=== PATIENT | female | born 1960 | race American Indian/Alaskan Native ===

== ENCOUNTER 2021-02-22 10:07 | Emergency (ER) | payer SELFPAY ==
[2021-02-22 10:15] VITALS: BP 159/99
--- NOTE | 2021-02-22 11:29 | XRay Report ---
CHEST 2 VIEWS INDICATION: chest pain. COMPARISON: 03/17/2012 FINDINGS: SUPPORT DEVICES: None. HEART: Within normal limits. LUNGS/PLEURA: No acute air space or interstitial disease. No pneumothorax. ADDITIONAL FINDINGS: None. IMPRESSION: 1. No acute findings. Signer Name: Dale Case MD Signed: 02/22/2021 11:25 AM Workstation Name: [id number]
--- NOTE | 2021-02-22 11:33 | Emergency Department Report ---
ED Chest Pain HPI - General Chief Complaint: Chest Pain Stated Complaint: CHEST PAIN Time Seen by Provider: 02/22/21 10:25 Source: patient Mode of arrival: Ambulatory Limitations: No Limitations - History of Present Illness Initial Comments: 60-year-old -M[place] female patient presents with complaints of cough and pain with deep breathing in the left-sided chest x2 weeks. She states she is vaccinated against COVID-19, however she has not had any recent testing performed. Cough is nonproductive and she denies any hemoptysis, fever, abdominal pain, or past heart history. She admits to some shortness of breath. No recent long travel/surgeries, leg pain/swelling, hormone use, or history of DVT/PE/cancer per patient. She also denies any past family history of heart disease. Past medical history includes hypertension, hepatitis C, and asthma. Patient states she has not taken her lisinopril 5 mg in 6 months - Related Data Previous Rx's Medication Instructions Recorded Last Taken Type Azithromycin [Zithromax Z-ALLAN] 0 mg PO DAILY #6 tab 02/22/21 Unknown Rx Lisinopril [Zestril] 5 mg PO QDAY #30 tablet 02/22/21 Unknown Rx guaiFENesin/DEXTROMETHORPHAN 1 each PO BID 10 Days #20 02/22/21 Unknown Rx [Mucinex Dm ER 1,200-60 mg Tab] tab.er.12h Heart Score - HEART Score History: Slightly suspicious EKG: Normal Age: 45-65 Risk factors: 1-2 risk factors Troponin: < normal limit HEART Score: 2 - EKG Read Time Time EKG Completed: 06:00 EKG Read Time: 06:05 - Critical Actions Critical Actions: 0-3 pts:0.9-1.7%risk of adverse cardiac event.Candidate for discharge ED Review of Systems ROS: Stated complaint: CHEST PAIN Other details as noted in HPI Constitutional: denies: chills, diaphoresis, fever, malaise, weakness ENT: denies: throat pain Respiratory: cough, shortness of breath Cardiovascular: as per HPI. denies: palpitations, edema, syncope Gastrointestinal: denies: abdominal pain, nausea, vomiting Neurological: denies: headache ED Past Medical Hx - Medications Home Medications: Home Medications Medication Instructions Recorded Confirmed Last Taken Type Azithromycin [Zithromax Z-ALLAN] 0 mg PO DAILY #6 tab 02/22/21 Unknown Rx Lisinopril [Zestril] 5 mg PO QDAY #30 tablet 02/22/21 Unknown Rx guaiFENesin/DEXTROMETHORPHAN 1 each PO BID 10 Days #20 02/22/21 Unknown Rx [Mucinex Dm ER 1,200-60 mg Tab] tab.er.12h ED Physical Exam - General Limitations: No Limitations General appearance: alert, in no apparent distress - Head Head exam: Present: atraumatic, normocephalic - Eye Eye exam: Present: normal appearance. Absent: scleral icterus - Neck Neck exam: Present: normal inspection - Respiratory Respiratory exam: Present: normal lung sounds bilaterally. Absent: respiratory distress - Cardiovascular Cardiovascular Exam: Present: regular rate, normal rhythm - GI/Abdominal GI/Abdominal exam: Present: soft. Absent: tenderness - Extremities Exam Extremities exam: Absent: calf tenderness (No swelling or pain noted to legs bilaterally) - Back Exam Back exam: Present: full ROM - Neurological Exam Neurological exam: Present: alert, oriented X3, normal gait - Psychiatric Psychiatric exam: Present: normal affect, normal mood - Skin Skin exam: Present: warm, dry, intact, normal color. Absent: rash ED Course Vital Signs 02/22/21 10:12 Temperature 98.0 F Pulse Rate 67 Respiratory 16 Rate Blood Pressure 159/99 O2 Sat by Pulse 99 Oximetry ED Medical Decision Making - Lab Data Result diagrams: 02/22/21 11:02 02/22/21 11:02 Lab Results 02/22/21 02/22/21 02/22/21 Range/Units 11:02 11:02 11:02 WBC 2.7 L (4.5-11.0) K/mm3 RBC 4.65 (3.65-5.03) M/mm3 Hgb 13.3 (10.1-14.3) gm/dl Hct 41.7 (30.3-42.9) % MCV 90 (79-97) fl MCH 29 (28-32) pg MCHC 32 (30-34) % RDW 13.9 (13.2-15.2) % Plt Count 132 L (140-440) K/mm3 Lymph % (Auto) [employer] Add Manual Diff Complete Total Counted 100 Seg Neutrophils % [employer] Seg Neuts % (Manual) 47.0 (40.0-70.0) % Lymphocytes % (Manual) 42.0 H (13.4-35.0) % Reactive Lymphs % (Man) 3.0 % Monocytes % (Manual) 5.0 (0.0-7.3) % Eosinophils % (Manual) 3.0 (0.0-4.3) % Nucleated RBC % Not Reportable Seg Neutrophils # Man 1.3 L (1.8-7.7) K/mm3 Band Neutrophils # 0.0 K/mm3 Lymphocytes # (Manual) 1.1 L (1.2-5.4) K/mm3 Abs React Lymphs (Man) 0.1 K/mm3 Monocytes # (Manual) 0.1 (0.0-0.8) K/mm3 Eosinophils # (Manual) 0.1 (0.0-0.4) K/mm3 Basophils # (Manual) 0.0 (0.0-0.1) K/mm3 Metamyelocytes # 0.0 K/mm3 Myelocytes # 0.0 K/mm3 Promyelocytes # 0.0 K/mm3 Blast Cells # 0.0 K/mm3 WBC Morphology Not Reportable TNR Hypersegmented Neuts Not Reportable Hyposegmented Neuts Not Reportable Hypogranular Neuts Not Reportable Smudge Cells Not Reportable Toxic Granulation Not Reportable Toxic Vacuolation Not Reportable Dohle Bodies Not Reportable Pelger-Huet Anomaly Not Reportable Oscar Rods Not Reportable Platelet Estimate Consistent w auto Clumped Platelets Not Reportable Plt Clumps, EDTA Not Reportable Large Platelets Not Reportable Giant Platelets Not Reportable Platelet Satelliting Not Reportable Plt Morphology Comment Not Reportable RBC Morphology Normal Dimorphic RBCs Not Reportable Polychromasia Not Reportable Hypochromasia Not Reportable Poikilocytosis Not Reportable Anisocytosis Not Reportable Microcytosis Not Reportable Macrocytosis Not Reportable Spherocytes Not Reportable Pappenheimer Bodies Not Reportable Sickle Cells Not Reportable Target Cells Not Reportable Tear Drop Cells Not Reportable Ovalocytes Not Reportable Helmet Cells Not Reportable [place] Bodies Not Reportable [place] Rings Not Reportable [place] Cells Not Reportable Bite Cells Not Reportable Crenated Cell Not Reportable Elliptocytes Not Reportable Acanthocytes (Spur) Not Reportable Rouleaux Not Reportable Hemoglobin C Crystals Not Reportable Schistocytes Not Reportable Malaria parasites Not Reportable [place] Bodies Not Reportable Hem Pathologist Commnt No D-Dimer (0-234) ng/mlDDU Sodium 140 (137-145) mmol/L Potassium 3.8 (3.6-5.0) mmol/L Chloride 99.6 (98-107) mmol/L Carbon Dioxide 25 (22-30) mmol/L Anion Gap 19 mmol/L BUN 12 (7-17) mg/dL Creatinine 0.6 (0.6-1.2) mg/dL Estimated GFR > 60 ml/min BUN/Creatinine Ratio 20 % Glucose 114 H (65-100) mg/dL Calcium 9.1 (8.4-10.2) mg/dL Total Bilirubin 0.90 (0.1-1.2) mg/dL AST 84 H (5-40) units/L ALT 73 H (7-56) units/L Alkaline Phosphatase 97 (35-129) units/L Troponin T < 0.010 (0.00-0.029) ng/mL NT-Pro-B Natriuret Pep (0-900) pg/mL Total Protein 7.7 (6.3-8.2) g/dL Albumin 4.0 (3.9-5) g/dL Albumin/Globulin Ratio 1.1 % 02/22/21 02/22/21 Range/Units 11:35 14:41 WBC (4.5-11.0) K/mm3 RBC (3.65-5.03) M/mm3 Hgb (10.1-14.3) gm/dl Hct (30.3-42.9) % MCV (79-97) fl MCH (28-32) pg MCHC (30-34) % RDW (13.2-15.2) % Plt Count (140-440) K/mm3 Lymph % (Auto) Add Manual Diff Total Counted Seg Neutrophils % Seg Neuts % (Manual) (40.0-70.0) % Lymphocytes % (Manual) (13.4-35.0) % Reactive Lymphs % (Man) % Monocytes % (Manual) (0.0-7.3) % Eosinophils % (Manual) (0.0-4.3) % Nucleated RBC % Seg Neutrophils # Man (1.8-7.7) K/mm3 Band Neutrophils # K/mm3 Lymphocytes # (Manual) (1.2-5.4) K/mm3 Abs React Lymphs (Man) K/mm3 Monocytes # (Manual) (0.0-0.8) K/mm3 Eosinophils # (Manual) (0.0-0.4) K/mm3 Basophils # (Manual) (0.0-0.1) K/mm3 Metamyelocytes # K/mm3 Myelocytes # K/mm3 Promyelocytes # K/mm3 Blast Cells # K/mm3 WBC Morphology Hypersegmented Neuts Hyposegmented Neuts Hypogranular Neuts Smudge Cells Toxic Granulation Toxic Vacuolation Dohle Bodies Pelger-Huet Anomaly Oscar Rods Platelet Estimate Clumped Platelets Plt Clumps, EDTA Large Platelets Giant Platelets Platelet Satelliting Plt Morphology Comment RBC Morphology Dimorphic RBCs Polychromasia Hypochromasia Poikilocytosis Anisocytosis Microcytosis Macrocytosis Spherocytes Pappenheimer Bodies Sickle Cells Target Cells Tear Drop Cells Ovalocytes Helmet Cells Hayden-Floris Bodies [place] Rings Sana Cells Bite Cells Crenated Cell Elliptocytes Acanthocytes (Spur) Rouleaux Hemoglobin C Crystals Schistocytes Malaria parasites Torito Bodies Hem Pathologist Commnt D-Dimer 287.60 H (0-234) ng/mlDDU Sodium (137-145) mmol/L Potassium (3.6-5.0) mmol/L Chloride (98-107) mmol/L Carbon Dioxide (22-30) mmol/L Anion Gap mmol/L BUN (7-17) mg/dL Creatinine (0.6-1.2) mg/dL Estimated GFR ml/min BUN/Creatinine Ratio % Glucose (65-100) mg/dL Calcium (8.4-10.2) mg/dL Total Bilirubin (0.1-1.2) mg/dL AST (5-40) units/L ALT (7-56) units/L Alkaline Phosphatase (35-129) units/L Troponin T (0.00-0.029) ng/mL NT-Pro-B Natriuret Pep 414.8 (0-900) pg/mL Total Protein (6.3-8.2) g/dL Albumin (3.9-5) g/dL Albumin/Globulin Ratio % - Radiology Data Radiology results: report reviewed CHEST 2 VIEWS INDICATION: chest pain. COMPARISON: 03/17/2012 FINDINGS: SUPPORT DEVICES: None. HEART: Within normal limits. LUNGS/PLEURA: No acute air space or interstitial disease. No pneumothorax. ADDITIONAL FINDINGS: None. IMPRESSION: 1. No acute findings. - Medical Decision Making 60-year-old -M[place] female patient presents with complaints of cough and pain with deep breathing in the left-sided chest x2 weeks. She states she is vaccinated against COVID-19, however she has not had any recent testing performed. Cough is nonproductive and she denies any hemoptysis, fever, abdominal pain, or past heart history. She admits to some shortness of breath. No recent long travel/surgeries, leg pain/swelling, hormone use, or history of DVT/PE/cancer per patient. She also denies any past family history of heart disease. Past medical history includes hypertension, hepatitis C, and asthma. Patient states she has not taken her lisinopril 5 mg in 6 months Troponin is normal. No acute abnormalities noted on x-ray or labs. Dimer performed given age and pleuritic chest pain and is mildly positive. Discussed possibility of PE given positive dimer, however patient declines CTA chest and states she would like to go home. Discussed risks versus benefits of CTA chest including possibly , patient continues to decline CT chest. Will discharge home and treat for lower respiratory tract infection. Recommend patient get COVID-19 testing within the next 24 to 48 hours and self quarantine's until further instructed. Also recommend patient follows up with primary care for further evaluation of her blood pressure and treatment. Strict return precautions discussed in great detail with patient who verbalizes Critical care attestation.: If time is entered above; I have spent that time in minutes in the direct care of this critically ill patient, excluding procedure time. ED Disposition Clinical Impression: Lower respiratory infection, Pleuritis Disposition: HOME / SELF CARE / HOMELESS Is pt being admited?: No Condition: Stable Instructions: Acute Bronchitis, Adult, Pleurisy Prescriptions: guaiFENesin/DEXTROMETHORPHAN [Mucinex Dm ER 1,200-60 mg Tab] 1 each PO BID 10 Days #20 tab.er.12h Lisinopril [Zestril] 5 mg PO QDAY #30 tablet Azithromycin [Zithromax Z-ALLAN] 0 mg PO DAILY #6 tab Referrals: [facility] [Provider Group] - 3-5 Days PRIMARY CARE, [Primary Care Provider] - 3-5 Days Forms: Work/School Release Form(ED)
[2021-02-22 11:41] LABS: Hematocrit 41.7 % (30.3-42.9); Hemoglobin 13.3 gm/dl (10.1-14.3); Mean Corpuscular HGB Conc 32 % (30-34); Mean Corpuscular Volume 90 fl (79-97); Platelet Count 132 K/mm3 (140-440); Red Blood Count 4.65 M/mm3 (3.65-5.03); Red Cell Distribution Width 13.9 % (13.2-15.2)
[2021-02-22 11:58] LABS: Blood Urea Nitrogen 12 mg/dL (7-17); Calcium 9.1 mg/dL (8.4-10.2)
[2021-02-22 11:59] LABS: Alanine Aminotransferase 73 units/L (7-56); Hemolysis Index 25
[2021-02-22 12:03] LABS: BUN/Creatinine Ratio 20
[2021-02-22 12:56] LABS: Total Cells Counted 100
[2021-02-22 12:58] LABS: Platelet Estimate Consistent w Auto; RBC Morphology Normal
--- NOTE | 2021-02-23 11:01 | Electrocardiograph Report ---
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
== END 2021-02-22 16:14 | disposition home or self-care (01) ==
LOC: ED 10:07
DX: J06.9 Acute upper respiratory infection, unspecified (principal); R09.1 Pleurisy
CPT/HCPCS: 36415; 71046; 80053; 83880; 84484; 85007; 85025; 85379; 93005; 99283

== ENCOUNTER 2021-05-26 09:13 | Emergency (ER) | payer SELFPAY ==
[2021-05-26 09:36] VITALS: BP 142/101
--- NOTE | 2021-05-26 10:16 | XRay Report ---
XR knee 3V LT INDICATION / CLINICAL INFORMATION: pain sp fall. COMPARISON: None available. FINDINGS: BONES/JOINT(S): No acute fracture or subluxation. Mild tricompartmental osteoarthritis. SOFT TISSUES: No significant abnormality. ADDITIONAL FINDINGS: None. Signer Name: Jeff Hernandez MD Signed: 05/26/2021 10:12 AM Workstation Name: [email or web address]
[2021-05-26] MEDS ORDERED: KETOROLAC 30 MG/1 ML INJ IM ONE (10:17)
--- NOTE | 2021-05-26 10:18 | Emergency Department Report ---
ED Lower Extremity HPI - General Chief Complaint: Fall Stated Complaint: FELL ON [employer] TRAIN/LT KNEE Time Seen by Provider: 05/26/21 09:28 Source: patient Mode of arrival: Ambulatory Limitations: No Limitations - History of Present Illness Initial Comments: Ms. Rosenberg is a 60-year-old female that comes to the ER after falling while getting off a [employer] bus today. She was on her way to work when she slipped and went down onto her left knee. She is complaining of left knee pain. She is ambulatory to the ER. She is neurovascularly intact. She drove herself to the ER. She denies any other injury. Fall was witnessed. There was no prolonged downtime. MD Complaint: knee injury -: Sudden, hour(s) Injury: Knee: Right Type of Injury: blunt Place: work Severity: mild Improves With: nothing Worsens With: nothing Context: fall - Related Data Previous Rx's Medication Instructions Recorded Last Taken Type Lisinopril [Zestril] 5 mg PO QDAY #30 tablet 02/22/21 Unknown Rx Allergies Allergy/AdvReac Type Severity Reaction Status Date / Time acetaminophen [From Vicodin] Allergy Nausea Verified 05/26/21 09:28 aspirin Allergy Nausea Verified 05/26/21 09:27 hydrocodone [From Vicodin] Allergy Nausea Verified 05/26/21 09:28 ibuprofen Allergy Nausea Verified 05/26/21 09:29 tramadol Allergy Vomiting Verified 05/26/21 09:26 ED Review of Systems ROS: Stated complaint: FELL ON HEYDI TRAIN/LT KNEE Other details as noted in HPI Comment: All other systems reviewed and negative ED Past Medical Hx - Past Medical History Previous Medical History?: Yes Hx Hypertension: Yes - Surgical History Past Surgical History?: No - Family History Family history: no significant - Social History Smoking Status: Never Smoker Substance Use Type: None - Medications Home Medications: Home Medications Medication Instructions Recorded Confirmed Last Taken Type Lisinopril [Zestril] 5 mg PO QDAY #30 tablet 02/22/21 Unknown Rx ED Physical Exam - General Limitations: No Limitations General appearance: alert, in no apparent distress - Head Head exam: Present: atraumatic, normocephalic - Eye Eye exam: Present: normal appearance - ENT ENT exam: Present: mucous membranes moist - Neck Neck exam: Present: normal inspection - Respiratory Respiratory exam: Present: normal lung sounds bilaterally. Absent: respiratory distress - Cardiovascular Cardiovascular Exam: Present: regular rate, normal rhythm. Absent: systolic murmur, diastolic murmur, rubs, gallop - GI/Abdominal GI/Abdominal exam: Present: soft, normal bowel sounds - Extremities Exam Extremities exam: Present: normal inspection - Back Exam Back exam: Present: normal inspection - Neurological Exam Neurological exam: Present: alert, oriented X3 - Psychiatric Psychiatric exam: Present: normal affect, normal mood - Skin Skin exam: Present: warm, dry, intact, normal color. Absent: rash ED Course Vital Signs 05/26/21 09:26 Temperature 98.4 F Pulse Rate 65 Respiratory 18 Rate Blood Pressure 142/101 O2 Sat by Pulse 99 Oximetry ED Lower Extremity MDM - Radiology Data Radiology results: report reviewed, image reviewed See report - Medical Decision Making Vital Signs 05/26/21 09:26 Temperature 98.4 F Pulse Rate 65 Respiratory 18 Rate Blood Pressure 142/101 O2 Sat by Pulse 99 Oximetry X-ray negative for fracture Patient has acute on chronic hypertension. She has no chest pain or shortness of breath Patient is ambulatory to the ER Patient's allergies to Tylenol, aspirin hydrocodone ibuprofen and tramadol are stomach upset. Medicated with Toradol IM in the ER for pain Discharged home with discharge plan of care including diet, activity, medications and follow-up. Patient verbalizes understanding of discharge plan of care - Differential Diagnosis Rule out fracture Critical care attestation.: If time is entered above; I have spent that time in minutes in the direct care of this critically ill patient, excluding procedure time. ED Disposition Clinical Impression: Abrasion, Hx of essential hypertension Fall Qualifiers: Encounter type: initial encounter Qualified Code(s): W19.XXXA - Unspecified fall, initial encounter Knee pain Qualifiers: Chronicity: acute Laterality: left Qualified Code(s): M25.562 - Pain in left knee Disposition: HOME / SELF CARE / HOMELESS Is pt being admited?: No Does the pt Need Aspirin: No Condition: Stable Instructions: Musculoskeletal Pain Additional Instructions: REST ICE ELEVATE KNEE TODAY FOLLOW UP WITH ORTHO IF PAIN PERSISTS REFERRAL BELOW MONITOR YOUR BP AND MAKE SURE IT RETURNS TO BASELINE SEE PCP IF IT DOES NOT Referrals: ROSITA SHOEMAKER MD [Staff Physician] - 3-5 Days Forms: Work/School Release Form(ED) Time of Disposition: 10:17
== END 2021-05-26 11:24 | disposition home or self-care (01) ==
LOC: ED 09:13
DX: S80.212A Abrasion, left knee, initial encounter (principal); M25.562 Pain in left knee; I10 Essential (primary) hypertension; W19.XXXA Unspecified fall, initial encounter; Y93.89 Activity, other specified; Y92.89 Other specified places as the place of occurrence of the external cause; Y99.8 Other external cause status; Z88.6 Allergy status to analgesic agent; Z88.5 Allergy status to narcotic agent
CPT/HCPCS: 73562; 96372; 99283; J1885

== ENCOUNTER 2021-07-10 15:54 | Emergency (ER) | payer SELFPAY ==
[2021-07-10 16:42] VITALS: BP 120/80
== END 2021-07-10 22:00 | disposition left against medical advice (07) ==
LOC: ED 15:54
DX: M79.10 Myalgia, unspecified site (principal); Z53.21 Procedure and treatment not carried out due to patient leaving prior to being seen by health care provider